=== PATIENT | female | born 1990 | race Caucasian/White ===

== ENCOUNTER 2017-03-29 10:52 | Emergency (ER) | payer SELFPAY ==
[2017-03-29] MEDS ORDERED: Benzonatate 100 MG CAP ONE (11:26)
[2017-03-29] MEDS ORDERED: AMOXicillin 250 MG CAP ONE (11:26)
== END 2017-03-29 11:32 | disposition home or self-care (01) ==
LOC: MADERS 10:52
DX: J03.90 Acute tonsillitis, unspecified (principal)
CPT/HCPCS: 99283

== ENCOUNTER 2018-08-01 11:54 | Emergency (ER) | payer MEDICAID, SELFPAY ==
[2018-08-01 12:50] LABS: #Basophils 0.1 thou/uL (0.0-0.2); #Eosinphils 0.1 thou/uL (0.0-0.7); #Lymphocytes 1.8 thou/uL (1.20-3.40); #Monocytes 0.6 thou/uL (0.11-0.59); #Neutrophils 4.9 thou/uL (1.40-6.50); %Basophils 0.8 % (0.0-1.0); %Eosinophils 0.7 % (0.0-10.0); %Lymphocytes 24.6 % (21.0-51.0); %Monocytes 8.5 % (0.0-10.0); %Neutrophils 65.4 % (42.0-75.0); Hemoglobin 13.6 g/dL (12.0-16.0); Mean Corpuscular HGB CONC 32.8 g/dL (32.0-36.0); Mean Corpuscular Hemoglobin 31.8 pg (27.0-31.0); Mean Corpuscular Volume 97.1 fL (78.0-98.0); Mean Platelet Volume 7.8 fL (7.4-10.4); Platelet Count 264 thou/uL (130-400); RBC Distribution Width 11.8 % (11.5-14.5); Red Blood Cell (RBC) Count 4.27 mill/uL (4.20-5.40); White Blood Cell (WBC) Count 7.5 thou/uL (4.8-10.8)
[2018-08-01 13:04] LABS: Anion Gap 12 mmol/L (10-20); BUN (Urea Nitrogen) 13 mg/dL (7.0-18.7); Calc. Creatinine Clearance 0 mL/min (70-130); Calcium 9.1 mg/dL (7.8-10.44); Carbon Dioxide 25 mmol/L (22-29); Chloride 105 mmol/L (98-107); Estimated GFR-MDRD Greater than 90; Glucose 88 mg/dL (70-105); Potassium 4.3 mmol/L (3.5-5.1); Sodium 138 mmol/L (136-145)
[2018-08-01 13:06] LABS: Pregnancy Test - Urine (BHCG) Negative (Negative); Pregu Control Background? CLEAR/WHITE (CLR/WHITE); Pregu Control Bar Appear? YES (CONTROL BAR); Specific Gravity 1.025 (1.002-1.036)
[2018-08-01 13:07] LABS: Bilirubin Negative (Negative); Blood, Urine Trace (Negative); Glucose, Urine (Dipstick) Negative (Negative); Leukocyte Negative (Negative); Nitrite Negative (Negative); Protein, Urine (Dipstick) 30 mg/dL (Neg-Trace); pH, Urine 7.5 (5.0-9.0)
[2018-08-01 13:08] LABS: Clarity Hazy (Clear); Specific Gravity, Urine 1.025 (1.002-1.036)
[2018-08-01 13:12] LABS: RBC/HPF 0-3 HPF (0-3)
[2018-08-01 13:13] LABS: Bacteria/HPF 1+ HPF (None Seen); WBC/HPF 0-3 HPF (0-3)
--- NOTE | 2018-08-01 13:34 | CT ---
Exam: Abdomen CT without contrast Pelvic CT without contrast HISTORY: Flank pain COMPARISON: None FINDINGS: Abdomen CT: Lung bases:Clear Heart size: Nonenlarged Aorta: Normal caliber Solid organs: Limited evaluation due to lack of IV contrast. Grossly no solid organ abnormality Lymph nodes: No gastrohepatic, retrocrural or periportal lymphadenopathy Gallbladder: Contracted, likely due to a nonfasting state Mesentery: No mass, lymphadenopathy, free air or free fluid scattered nonspecific mesenteric lymph no maynor. Kidneys: Nonobstructing 1 to 2 mm calculi in the left and right intrarenal collecting systems. Bilate rally no hydronephrosis. Bilateral no nephrolithiasis or perinephric fat stranding. Bilateral ureters have normal caliber. No hydroureter, periureteral fat stranding or ureterolithiasis. Alimentary canal: Limited evaluation by technique. No evidence of bowel obstruction. Ileocecal juncti on is normal. Normal caliber appendix. Ventral abdominal wall hernia containing mesenteric fat. CT PELVIS: No mass, adenopathy, free air or free fluid. Uterus is unremarkable. Left adnexa is unremarkable. Hy podensity in the right adnexa measures 3.5 x 2.6 cm, with attenuation coefficient of 4 Hounsfield units. A right ovarian cyst is favored. Urinary bladder: Unremarkable. Osseous structures: No lytic or blastic lesions IMPRESSION: 1. Bilateral nonobstructing intrarenal calculi. Bilaterally no obstructive uropathy 2. Normal caliber appendix. 3. Probable cyst associated with the right ovary.
== END 2018-08-01 13:59 | disposition home or self-care (01) ==
LOC: MADERS 11:54
DX: N83.209 Unspecified ovarian cyst, unspecified side (principal); N20.0 Calculus of kidney; F17.210 Nicotine dependence, cigarettes, uncomplicated
CPT/HCPCS: 36415; 74176; 80048; 81003; 81015; 81025; 85025; 87086

== ENCOUNTER 2019-02-21 11:03 | Emergency (ER) | payer MEDICAID | END 2019-02-21 11:33 | disposition home or self-care (01) | LOC: MADERS 11:03 | DX: J11.1 Influenza due to unidentified influenza virus with other respiratory manifestations (principal); F17.210 Nicotine dependence, cigarettes, uncomplicated; Z71.6 Tobacco abuse counseling | CPT/HCPCS: 99406 ==

== ENCOUNTER 2019-05-21 08:30 | Emergency (ER) | payer MEDICAID, SELFPAY ==
[2019-05-21 09:01] LABS: Bilirubin Negative (Negative); Blood, Urine Trace (Negative); Glucose, Urine (Dipstick) Negative (Negative); Leukocyte Negative (Negative); Nitrite Negative (Negative); Protein, Urine (Dipstick) Negative (Neg-Trace); Urobilinogen 0.2 mg/dL (Less than 2)
[2019-05-21 09:02] LABS: Bacteria/HPF 2+ HPF (None Seen); Clarity Hazy (Clear); RBC/HPF 0-3 HPF (0-3); Squamous Epithelial 0-3 HPF (0-3); WBC/HPF 0-3 HPF (0-3)
[2019-05-21 09:04] LABS: Pregnancy Test - Urine (BHCG) Negative (Negative); Pregu Control Background? CLEAR/WHITE (CLR/WHITE); Pregu Control Bar Appear? YES (CONTROL BAR); Specific Gravity 1.015 (1.002-1.036)
== END 2019-05-21 09:38 | disposition home or self-care (01) ==
LOC: MADERS 08:30
DX: R82.71 Bacteriuria (principal); F17.210 Nicotine dependence, cigarettes, uncomplicated
CPT/HCPCS: 81003; 81015; 81025; 99283